=== PATIENT | male | born 1990 | race Caucasian/White ===

== ENCOUNTER 2018-08-15 11:05 | Outpatient (CLI) | payer OTHER ==
--- NOTE | 2018-08-15 15:05 | RAD ---
RIGHT SHOULDER ARTHROGRAM: HISTORY: Right shoulder instability. EXPOSURE: 0.4 minutes. 28.8 mGy*^m2. FINDINGS: Initial 3-view plastic and reconstructive surgeon right shoulder radiograph does not demonstrate any fracture or dislocation. Gle nohumeral joint space is preserved. Successful right shoulder arthrogram. A total of 12 cc of the contrast was administered into the magi nt space. TECHNIQUE: Consent was obtained to perform a right shoulder arthrogram. The right shoulder was prepped and drap ed in a sterile fashion. 1% Lidocaine, buffered with sodium bicarbonate, was used for local anesthes ia. Under fluoroscopic guidance, a 22-gauge spinal needle was used to administered the contrast in t he joint. A total of 12 cc was administered. The patient tolerated the procedure well. No immediat e or postprocedure complication. IMPRESSION: Successful right shoulder arthroplasty. POS: JOSEPH
--- NOTE | 2018-08-15 15:59 | MRI ---
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 COMPARISON: None. FINDINGS: Biceps Tendon: Extraarticular biceps tendon is normal. Interarticular biceps tendon is normal. Labrum: There is a tear of the anterior inferior labrum without significant stripping of the periosteum. Ther e is also extension in the adjacent anterior inferior cartilage at 3-4 o'clock. Posterior labrum is i ntact. Superior labrum also appears to be intact. Rotator Cuff: There is a focal thick perforation of the mid 3.0 mm supraspinatus tendon with a tear extending from the bursal surface and having a delaminating component along the tendon for a length of 1.8 cm and a width of approximately 50-60% thickness. This is a focal undersurface partial tear and does not invol ving the posterior fibers nor the anteriormost fibers. Infraspinatus tendon is intact. Subscapularis tendon is intact. Bones: There is a Type III acromion with subacromial spur of the coracoacromial ligament. Normal glenoid satish anderson. No acute fracture or malalignment. Low grade degenerative change of acromioclavicular joint. Muscles: Muscle bulk is normal. IMPRESSION: 1. Glenoid labral articular disruption with tear of the anterior labrum at 3-5 o'clock with extensio n into the adjacent cartilage at 3-4 o'clock for a transverse dimension of 2.0 mm. No displaced osteo chondral fragment is seen within the axillary pouch. 2. Focal high grade undersurface partial tear mid 2-3 mm fibers of the supraspinatus tendon with del amination along the tendon itself in the footprint 1.8 cm. This involves approximately 60% of the thi ckness of the supraspinatus tendon. 3. Normal muscle signal and bulk. POS: [facility]
== END 2018-08-15 11:06 | disposition home or self-care (01) ==
LOC: RAD 11:05
PROVIDERS: ATTEND Orthopaedic Surgery
DX: M25.311 Other instability, right shoulder (principal); S43.491A Other sprain of right shoulder joint, initial encounter; M75.101 Unspecified rotator cuff tear or rupture of right shoulder, not specified as traumatic
CPT/HCPCS: 23350